=== PATIENT | female | born 1985 | race Caucasian/White ===

== ENCOUNTER 2019-08-13 10:34 | Emergency (ER) | payer BC, SELFPAY ==
[2019-08-13 10:51] VITALS: BP 102/82; PULSE 114; RESP 20; TEMP 37.1; O2SAT 99
--- NOTE | 2019-08-13 11:33 | ED.URI ---
HPI - URI/Sore Throat General Chief Complaint: Upper Respiratory Infection Stated Complaint: Cough,Fever Time Seen by Provider: 08/13/19 11:20 Source: patient and RN notes reviewed Mode of arrival: ambulatory Limitations: no limitations History of Present Illness HPI Narrative: 33-year-old female presents with concern for cough, body aches, sore throat that started Wednesday. She reports low-grade fever of 99.9. 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 Reports she has been taking [id number] medications with little relief. MD elicited complaint: sore throat Related Data Home Medications Medication Instructions Recorded Confirmed fluoxetine 20 mg DAILY 05/19/19 08/13/19 metoprolol succinate 200 mg PO DAILY 05/19/19 08/13/19 Allergies Allergy/AdvReac Type Severity Reaction Status Date / Time scopolamine Allergy Mild HIVES and Verified 02/16/19 02:28 nausea Review of Systems Review of Systems: Narrative: CONSTITUTIONAL: Denies malaise, chills, sweats, or fever. EYES: Denies visual changes, redness, or discharge. ENT: Reports rhinorrhea, congestion, sinus pain, otalgia and sore throat. CARDIOVASCULAR: Denies chest pain, palpitations, or edema. RESPIRATORY: Reports cough. Denies dyspnea. GASTROINTESTINAL: Denies abdominal pain, nausea, vomiting, diarrhea SKIN: Denies rash or itching. MUSCULOSKELETAL: Denies myalgia. NEUROLOGIC: Denies headache. All systems reviewed & are unremarkable except as noted in HPI and below PMFSH Social History Social History Gender identity (if verbalized by the patient): Female Comments At time of signature, agree with nursing past medical, surgical, social and family history. There is no relevant family history pertinent to the presenting complaint Course Course Emergency Course: Contact the medicine can help department regarding pursuing COVID-19 testing for this patient. They advised this patient does not currently meet the criteria for testing or for self 14-day quarantine. Advised the patient to self quarantine until symptom-free for 48 hours. Patient is aware of diagnosis, understands and agrees to treatment plan. Anticipatory guidance given. Patient agrees to follow-up as directed and is aware of reasons to seek care at the emergency department. Portions of this record may have been created with voice recognition software Vital Signs Vital signs: Vital Signs Temperature 98.7 F 08/13/19 10:51 Pulse Rate 114 H 08/13/19 10:51 Respiratory Rate 08/13/19 10:51 Blood Pressure 102/82 08/13/19 10:51 Pulse Oximetry 99 08/13/19 10:51 Temperature 98.7 F 08/13/19 10:51 Pulse Rate 114 H 08/13/19 10:51 Respiratory Rate 08/13/19 10:51 Blood Pressure 102/82 08/13/19 10:51 Pulse Oximetry 99 08/13/19 10:51 Reviewed. MDM - URI/Sore Throat MDM Narrative Medical decision making narrative: Differential diagnosis considered: COVID-19, strep pharyngitis, allergic rhinitis, upper respiratory tract infection, sinusitis, rhinosinusitis, nasopharyngitis. viral pharyngitis, otitis media, otitis externa, pneumonia, bronchitis, viral cough syndrome, viral syndrome, and influenza. Exam findings show no acute concerns or changes; patient is non-toxic appearing and is in no distress. Patient is appropriate for outpatient treatment and follow-up. Lab Data Labs: Influenza A Screen Negative Reference Range: Negative Influenza B Screen Negative Reference Range: Negative Strep Screen Presumptive Negative *(Reference Range: Negative)* Critical Care Time Critical Care Time Critical Care Time: No Discharge Plan Discharge Clinical Impression: Acute upper respiratory infection Patient Disposition: Home, Self-Care Condition: Stable Instructions: Upper Respiratory Infection (ED) Additional Instructions: -Your symptoms are caused b
== END 2019-08-13 11:38 | disposition home or self-care (01) ==
PROVIDERS: Emergency Provider Nurse Practitioner; PCP Nurse Practitioner Family
DX: J06.9 Acute upper respiratory infection, unspecified (principal); I10 Essential (primary) hypertension
CPT/HCPCS: 87081; 87804; 87880; 99213; G0463

== ENCOUNTER 2021-02-20 17:47 | Emergency (ER) | payer BC, SELFPAY ==
[2021-02-20 17:56] VITALS: BP 134/86; PULSE 90; RESP 18; TEMP 36.6; O2SAT 100
--- NOTE | 2021-02-20 17:59 | ED.GENADULT ---
HPI - General Adult General Chief complaint: Upper Respiratory Infection Stated complaint: valentino/sore throat/tired/weak Source: patient Mode of arrival: ambulatory Limitations: no limitations History of Present Illness HPI narrative: Pleasant 35 y/o female. PMHx MDD. Presents to ED today with acute complaints of frontal VALENTINO, nasal congestion, and now sore throat for the past 24 hours. She denies head injury, focal weakness, LOC. No fever, chills. No chest congestion, dyspnea, chest pain. Pt is a non-smoker. Denies known ill contacts, but has been working at a [employer] for [employer] in past week, prior to manifestation onset. Pt is without additional acute c/o illness upon exam. Related Data Home Medications Medication Instructions Recorded Confirmed labetalol 200 mg PO DAILY 02/20/21 02/20/21 norethindrone ac-eth estradiol 1 tablet PO DAILY 02/20/21 02/20/21 [June06/19 ()] sertraline 25 mg PO DAILY 02/20/21 02/20/21 Allergies Allergy/AdvReac Type Severity Reaction Status Date / Time scopolamine Allergy Mild HIVES and Verified 02/20/21 18:01 nausea Review of Systems Review of Systems: CONSTITUTIONAL: Denies fever, chills, sweats. EYES: Denies visual changes, redness, discharge. HENT: Headache, Positive rhinorrhea, congestion, sore throat. No otalgia. CARDIOVASCULAR: Denies chest pain, palpitations, edema. RESPIRATORY: Denies dyspnea, wheezing, cough GASTROINTESTINAL: Denies abdominal pain, nausea, vomiting, diarrhea. GENITOURINARY: Denies dysuria, hematuria, abnormal discharge SKIN: Denies rash or itching. MUSCULOSKELETAL: Denies acute back pain, joint pain, or myalgia. NEUROLOGIC: Denies numbness, or focal weakness. PSYCHIATRIC: Denies anxiety or depression. All systems reviewed & are unremarkable except as noted in HPI and below PMFSH Social History Social History Gender identity (if verbalized by the patient): Female Exam Narrative: GENERAL: This is a well-nourished, well-developed adult, in no apparent distress. HEAD: normocephalic, atraumatic. EYES: PERRL. Sclera clear/white. EARS: External ears normal, auditory canals clear and without drainage, TMs normal. NOSE: External nose normal. Positive Rhinorrhea and bilateral nare congestion. No obstruction, nares patent. THROAT: Mucous membranes moist, posterior pharynx erythematous with mild exudative changes. No swelling or airway distress. NECK: Neck supple, non-tender without lymphadenopathy, masses or thyromegaly. CARDIOVASCULAR: Regular rate and rhythm without murmurs, gallops, or rubs. RESPIRATORY: Clear to auscultation. Breath sounds equal bilaterally. No wheezes, rales, or rhonchi. GASTROINTESTINAL: Abdomen soft, non-tender, nondistended. Bowel sounds are active. No guarding. SKIN: warm, intact with no suspicious lesions or rash, good texture and turgor. NEURO: Alert, active, and age appropriate. No focal neurologic deficits. EXTREMITIES: Negative. Course Vital Signs Vital signs: Vital Signs Temperature 36.6 C 02/20/21 17:56 Pulse Rate 90 02/20/21 17:56 Respiratory Rate 18 02/20/21 17:56 Blood Pressure 134/86 02/20/21 17:56 Pulse Oximetry 100 02/20/21 17:56 Temperature 36.6 C 02/20/21 17:56 Pulse Rate 90 02/20/21 17:56 Respiratory Rate 18 02/20/21 17:56 Blood Pressure 134/86 02/20/21 17:56 Pulse Oximetry 100 02/20/21 17:56 Medical Decision Making MDM Narrative Medical decision making narrative: -Afebrile and appears non-toxic. -Rapid strep reveals negative results. SARS Covid: Send-out analysis. -Zpack & Medrol as directed. May resume all additional OTC remedies as needed for symptomatic relief. -Resume self isolation and Quarantine until Covid test results are received, longer per CDC & Local Health Dept guidelines with positive PCR result. -PCP F/U when quarantine released. -ER W/Emergent health status changes.
[2021-02-21 18:26] LABS: SARS-CoV-2 RNA PCR Negative
== END 2021-02-20 18:42 | disposition home or self-care (01) ==
PROVIDERS: Emergency Provider Nurse Practitioner Adult Health; PCP Nurse Practitioner Family
DX: J06.9 Acute upper respiratory infection, unspecified (principal); J02.9 Acute pharyngitis, unspecified; Z20.822 Contact with and (suspected) exposure to COVID-19
CPT/HCPCS: 87081; 87880; 99213; C9803; G0463; U0003; U0005

== ENCOUNTER 2021-11-01 10:06 | Emergency (ER) | payer BC, SELFPAY ==
[2021-11-01 10:14] VITALS: BP 119/80; PULSE 108; RESP 16; TEMP 36.2; O2SAT 99
--- NOTE | 2021-11-01 10:22 | ED.WOUNDLAC ---
HPI - Wound/Laceration General Chief Complaint: Wound/Laceration Stated Complaint: Surgical Incision Irritation Time Seen by Provider: 11/01/21 10:25 History of Present Illness HPI narrative: Radha Zaldivar is a 35 yo female with a PMH of HTN, obesity, who comes to [facility] with a small localized infection of one of her incisions from her bariatric surgery less than 2 weeks ago. She is talked to her bariatric surgeon who said to come to urgent care to get an antibiotic as he is seeing her on Wednesday. She denies any fever, any nausea or vomiting; she has tenderness around all incision areas but more so on the left scope site where there appears to be some pus under the dressing Related Data Home Medications Medication Instructions Recorded Confirmed Lactobacills gasseri-Bifidobac 1 cap PO DAILY 11/01/21 11/01/21 bifidum,longum 1.5 billion cell capsule (Netchemia) levonorgestrel 20 mcg/24 hours (7 See Rx Instructions .Route .COMPLEX 11/01/21 11/01/21 yrs) 52 mg intrauterine device (Mirena) omeprazole 40 mg capsule,delayed 1 cap PO DAILY 11/01/21 11/01/21 release ursodiol 300 mg capsule 1 cap PO DAILY 11/01/21 11/01/21 Allergies Allergy/AdvReac Type Severity Reaction Status Date / Time scopolamine Allergy Mild HIVES and Verified 11/01/21 10:12 nausea Review of Systems Review of Systems: CONSTITUTIONAL: Denies fever, chills, sweats. EYES: Denies visual changes, redness, discharge. ENT: Denies rhinorrhea, congestion, sore throat, otalgia. CARDIOVASCULAR: Denies chest pain, palpitations, edema. RESPIRATORY: Denies dyspnea, wheezing, cough GASTROINTESTINAL: Denies abdominal pain, nausea, vomiting, diarrhea. GENITOURINARY: Denies dysuria, hematuria, abnormal discharge SKIN: Denies rash or itching. Apparent infection of left laparoscopy incision area NEUROLOGIC: Denies numbness, or focal weakness. PSYCHIATRIC: Denies anxiety or depression. [facility] Past Medical History Medical History (Updated 11/01/21 @ 11:35 by Radha Roberts CNP) Anxiety Gall stone Hypertension Surgical History Surgical History History of bariatric surgery 12 days post op Social History Social History Gender identity (if verbalized by the patient): Female Comments At time of signature, I agree with nursing past medical, surgical, social and family history. There is no relevant family history pertinent to the presenting complaint. Exam Narrative: GENERAL: This is a well-nourished, well-developed patient, in mild distress. HEAD: normocephalic, atraumatic. EYES: Sclera clear/white. Vision is grossly intact. EARS: External ears normal. Hearing grossly intact. NOSE: External nose normal without nasal discharge, nares without redness, no rhinorrhea. THROAT: Mucous membranes moist, NECK: Neck supple, non-tender CARDIOVASCULAR: Tachycardic rate and rhythm without murmurs, gallops, or rubs. RESPIRATORY: Clear to auscultation. Breath sounds equal bilaterally. No wheezes, rales, or rhonchi. GASTROINTESTINAL: Abdomen soft, mildly tender around into multiple incision sites left incision looks mildly puffy with possible exudate SKIN: warm, intact with no suspicious lesions or rash, good texture and turgor. NEURO: awake, alert, and oriented to person, place and time. There were no obvious focal neurologic abnormalities. Steady gait EXTREMITIES: Normal range of motion. BACK: Nontender without deformity Course Course Emergency Course: Patient is 12 days postop from bariatric surgery and talk to surgeon when left incision site looks puffy Started on Keflex 500 mg 3 times daily; may take Tylenol for pain Pt states that she is taking in the required fluids and protein as prescribed in the bariatric surgery intake schedule Will see bariatric surgeon on Wednesday and gave patient usual warnings about fever, na
== END 2021-11-01 10:39 | disposition home or self-care (01) ==
PROVIDERS: Emergency Provider Nurse Practitioner; PCP Hospitalist
DX: T81.41XA Infection following a procedure, superficial incisional surgical site, initial encounter (principal); I10 Essential (primary) hypertension
CPT/HCPCS: 99213; G0463

== ENCOUNTER 2023-04-19 14:07 | Emergency (ER) | payer BC, SELFPAY ==
[2023-04-19 14:28] VITALS: BP 130/76; PULSE 83; RESP 18; TEMP 36.5; O2SAT 100
--- NOTE | 2023-04-19 15:00 | ED.UPPEXIN ---
HPI - Extremity Injury (Upper) General Chief Complaint: Extremity Injury, Upper Stated Complaint: finger laceration Time Seen by Provider: 04/19/23 15:00 Source: patient Mode of arrival: ambulatory Limitations: no limitations History of Present Illness HPI narrative: 37-year-old female presented for complaint of laceration to the right index finger tip. She states she cut the tip of the finger using a mandoline slicer; She states she was not using the handle to cut the carrot. She was unable to stop the bleeding at home. Tetanus utd. Related Data Home Medications Medication Instructions Recorded Confirmed levonorgestrel 21 mcg/24 hours (8 See Rx Instructions .Route .COMPLEX 11/01/21 04/19/23 yrs) 52 mg intrauterine device (Mirena) sertraline 50 mg tablet 50 mg DIRECTED 04/19/23 04/19/23 Allergies Allergy/AdvReac Type Severity Reaction Status Date / Time scopolamine Allergy Mild HIVES and Verified 11/01/21 10:12 nausea Review of Systems Review of Systems: CONSTITUTIONAL: Denies body aches, fever, chills, or sweats. EYES: Denies visual changes, redness, or discharge. ENT: Denies rhinorrhea, congestion CARDIOVASCULAR: Denies chest pain, palpitations, or edema. RESPIRATORY: Denies cough or dyspnea. GASTROINTESTINAL: Denies abdominal pain, nausea, vomiting, or diarrhea. SKIN: reports right index finger laceration MUSCULOSKELETAL: Denies back pain, joint pain, or myalgia. NEUROLOGIC: Denies headache, numbness, tingling, or weakness. [facility] Past Medical History Medical History Anxiety Gall stone Hypertension Surgical History Surgical History History of bariatric surgery 12 days post op Social History Social History Gender identity (if verbalized by the patient): Female Comments At time of signature, I have reviewed and agree with nursing past medical, surgical, social and family history unless otherwise noted. Please see nursing chart for further information. There is no relevant family history pertinent to the presenting complaint Exam Narrative: GENERAL: Well-appearing HEAD: Normocephalic, atraumatic. EYES: conjunctivae clear, and EOMI. ENT: Mucous membranes moist. Oropharynx without edema, erythema or lesions. NECK: Supple. No lymphadenopathy CHEST: Clear to auscultation. HEART: Regular rate and rhythm. SKIN: Warm, dry. Right 2nd digit distal phalanx with skin avulsion <0.5cm diameter, pink wound bed; distal aspect of nail bed avulsed minimal nail involvement; no active bleeding. NEURO: Alert and oriented x3. Extrem: Hand/finger images: 1. area of distal phalanx skin avulsion Course Course Emergency Course: Patient is aware of diagnosis, understands and agrees to treatment plan. Anticipatory guidance given. Patient agrees to follow-up as directed and is aware of reasons to seek care at the emergency department. Portions of this record may have been created with voice recognition software Level of Care: Express Care Visit Vital Signs Vital signs: Vital Signs Temperature 97.7 F 04/19/23 14:28 Pulse Rate 83 04/19/23 14:28 Respiratory Rate 18 04/19/23 14:28 Blood Pressure 130/76 04/19/23 14:28 Pulse Oximetry 100 04/19/23 14:28 Oxygen Delivery Room Air 04/19/23 14:28 Temperature 97.7 F 04/19/23 14:28 Pulse Rate 83 04/19/23 14:28 Respiratory Rate 18 04/19/23 14:28 Blood Pressure 130/76 04/19/23 14:28 Pulse Oximetry 100 04/19/23 14:28 Oxygen Delivery Room Air 04/19/23 14:28 Reviewed MDM - Extremity Injury (Upper) MDM Narrative Medical decision making narrative: Pt presented for right 2nd digit skin avulsion; pt did not bring the skin flap. Discussed physical exam findings. Bleeding was controlled. Wound cleansed, dressing applied per EDIL lange
== END 2023-04-19 15:24 | disposition home or self-care (01) ==
PROVIDERS: Emergency Provider Nurse Practitioner Family; PCP Hospitalist
DX: S61.209A Unspecified open wound of unspecified finger without damage to nail, initial encounter (principal); I10 Essential (primary) hypertension; Z79.899 Other long term (current) drug therapy; W27.4XXA Contact with kitchen utensil, initial encounter
CPT/HCPCS: 99213; G0463